=== PATIENT | female | born 1975 | race Caucasian/White ===

== ENCOUNTER 2018-10-17 02:04 | Emergency (ER) | payer OTHER ==
[2018-10-17] MEDS ORDERED: ASPIRIN 81 MG CHEWABLE TABLET PO ONE (02:05)
[2018-10-17] MEDS ORDERED: ADENOSINE 12 MG/4 ML VIAL IVP ONE (02:12)
--- NOTE | 2018-10-17 02:17 | Emergency Department Record ---
History of Present Illness - General Chief Complaint: Rapid heartbeat Stated Complaint: CHEST PAIN Time Seen by Provider: 10/17/18 02:04 Source: Patient Mode of Arrival: Ambulatory Limitations: No limitations - History of Present Illness Initial Comments: 42 yo female presents to ED for evaluation of a racing anglin beat that began approximately 10 minutes ago, woke the patient from sleep. Patient denies previous history of symptoms, denies previous cardiac problems. Patient denies health problems at her baseline. Patient does report recent URI, reports using OTC medication with pseudoephedrine. Patient denies excess caffeine intake. MD Complaint: "Heart racing", Palpitations Onset/Timin -: Minutes(s) Context: Awoke with symptoms Associated Symptoms: Anxiety, Chest pain - Related Data Previous Rx's Medication Instructions Recorded Azithromycin [Zithromax] 250 mg PO DAILY #4 tab 10/17/18 Allergies Allergy/AdvReac Type Severity Reaction Status Date / Time bacitracin Allergy RASH Verified 10/08/15 23:47 [From Neosporin ([id number])] bacitracin zinc Allergy RASH Verified 10/08/15 23:47 [From Neosporin ([id number])] moxifloxacin HCl Allergy HIVES Verified 10/08/15 23:47 [From Avelox] neomycin sulfate Allergy RASH Verified 10/08/15 23:47 [From Neosporin ([id number])] polymyxin B Allergy RASH Verified 10/08/15 23:47 [From Neosporin ([id number])] Travel Screening - Travel/Exposure Within Last 30 Days Have you traveled within the last 30 days?: No Review of Systems Constitutional: Denies: Chills, Fever, Malaise, Night sweats Eyes: Denies: Eye discharge, Eye pain ENT: Denies: Congestion, Ear pain, Epistaxis Respiratory: Denies: Cough, Dyspnea Cardiovascular: Reports: Chest pain, Palpitations. Denies: Dyspnea on exertion Endocrine: Denies: Fatigue, Heat or cold intolerance Gastrointestinal: Denies: Abdominal pain, Nausea, Vomiting Genitourinary: Denies: Incontinence, Retention Musculoskeletal: Denies: Arthralgia, Back pain Skin: Denies: Bruising, Change in color Neurological: Denies: Abnormal gait, Confusion, Headache, Seizure Psychiatric: Denies: Anxiety Hematological/Lymphatic: Denies: Anemia, Blood Clots Past Medical History - SOCIAL HISTORY Smoking Status: Never smoker Alcohol Use: None Drug Use: None - RESPIRATORY Hx Respiratory Disorders: No - CARDIOVASCULAR Hx Cardio Disorders: No - NEURO Hx Neuro Disorders: No - GI Hx GI Disorders: No - Hx Genitourinary Disorders: No - ENDOCRINE Hx Endocrine Disorders: No - MUSCULOSKELETAL Hx Musculoskeletal Disorders: No - PSYCH Hx Psych Problems: No - HEMATOLOGY/ONCOLOGY Hx Hematology/Oncology Disorders: No Family Medical History Any Significant Family History?: Yes Hx Diabetes: Father, Mother Hx Heart Disease: Grandparents Physical Exam - General General Appearance: Alert, Oriented x3, Cooperative, Moderate distress Limitations: No limitations - Head Head exam: Atraumatic, Normocephalic, Normal inspection Head exam detail: negative: Abrasion, Contusion, Danielson's sign, General tenderness, Hematoma, Laceration - Eye Eye exam: Normal appearance. negative: Conjunctival injection, Periorbital swelling, Periorbital tenderness, Scleral icterus - ENT Ear exam: negative: Auricular hematoma, Auricular trauma Nasal Exam: negative: Active bleeding, Discharge, Dried blood, Foreign body Mouth exam: negative: Drooling, Laceration, Muffled voice, Tongue elevation - Neck Neck exam: Normal inspection. negative: Meningismus, Tenderness - Respiratory Respiratory exam: Normal lung sounds bilaterally. negative: Rales, Respiratory distress, Rhonchi, Stridor - Cardiovascular Cardiovascular Exam: Normal rhythm, Normal heart sounds, Tachycardia - GI/Abdominal GI/Abdominal exam: Soft. negative: Rebound, Rigid, Tenderness - Rectal Rectal exam: Deferred - exam: Deferred - Extremities Extremities exam: Normal inspection. negative: Pedal edema, Tenderness - Back Back exam: Denies: CVA tenderness (R), CVA tenderness (L) - Neurological Neurological exam: Alert, Normal gait, Oriented X3 - Psychiatric Psychiatric exam: Normal affect, Normal mood - Skin Skin exam: Normal color. negative: Abrasion Type of lesion: negative: abrasion Course - Reevaluation(s) Reevaluation #1: 10/17/18 02:21 EKG: SVT 201 Normal axis, Regular intervals Rate-related changes present Patient was given Adenosine 12 mg IVP with resolution of SVT to Sinus tachycardia, IVFs ordered to infuse as well pending laboratory study results. Reevaluation #2: 03/08/19 02:44 Laboratory studies were reviewed and are grossly unremarkable for an acute process except: WBC 20.1 Influenza negative CXR: Possible streaky infiltrate right base Reevaluation #3: 10/17/18 04:19 EKG: Sinus tachycardia 111 Normal axis, normal intervals No acute ST-T wave changes Patient was reassessed, reports that she is feeling much better. Will prescribe Zithromax for URI symptoms. Patient appears stable for discharge at this time. Medical Decision Making - Lab Data Result diagrams: 10/17/18 02:21 10/17/18 02:21 Critical Care Time Critical Care Time: Yes Total Critical Care Time: 35 Critical Care Time: Diagnosis and treatment (cardioversion) from SVT to NSR, frequent reassessments , treatment for probable pneumonia, dehydration. Disposition Disposition: Discharge Clinical Impression: SVT (supraventricular tachycardia) CAP (community acquired pneumonia) Qualifiers: Laterality: right Lung location: lower lobe of lung Qualified Code(s): J18.1 - Lobar pneumonia, unspecified organism Disposition: Home, Self-Care Condition: (2) Stable Instructions: Supraventricular Tachycardia (ED) Additional Instructions: Return to ED if your symptoms worsen or if you have any concerns. Zithromax as directed. Follow-up with your family doctor in 3-5 days as directed. Prescriptions: Azithromycin [Zithromax] 250 mg PO DAILY #4 tab Forms: Patient Portal Access Time of Disposition: 04:20 Quality - Quality Measures Quality Measures: N/A - Blood Pressure Screening Does Patient Have Any of the Following: No Blood Pressure Classification: Pre-Hypertensive BP Reading Systolic Measurement: 158 Diastolic Measurement: 81 Screening for High Blood Pressure: < Pre-Hypertensive BP, F/U Documented > [ [id number]] Pre-Hypertensive Follow-up Interventions: Referral to alternative/primary care provider.
[2018-10-17 02:24] LABS: HEMATOCRIT 42.9 % (35.0-47.0); HEMOGLOBIN 14.7 gm/dl (11.6-16.0); MEAN CELL VOLUME 92.7 fl (81-97); MEAN CORPUSCULAR HEMOGLOBIN 31.7 pg (27-33); MEAN CORPUSCULAR HGB CONC 34.3 g/dl (32-36); MEAN PLATELET VOLUME 10.1 fl (7.4-10.4); PLATELET COUNT 374 K/uL (130-400); RED BLOOD COUNT 4.63 M/uL (3.80-5.40); RED CELL DISTRIBUTION WIDTH 12.5 % (11.5-14.5)
[2018-10-17 02:29] LABS: WHITE BLOOD COUNT W/O DIFF 20.1 K/uL (4.2-12.2)
[2018-10-17] MEDS ORDERED: 0.9 % SODIUM CHLORIDE 1000ML 1,000 ML IV SCH ×2 (02:30→03:15)
[2018-10-17 02:34] LABS: BLOOD UREA NITROGEN 11 mg/dL (6-20); CREATININE 0.7 mg/dL (0.5-0.9); EST GLOMERULAR FILTRATION RATE > 60 mL/min
[2018-10-17 02:35] LABS: TOTAL PROTEIN 8.1 g/dL (6.6-8.7)
[2018-10-17 02:37] LABS: GLUCOSE,RANDOM 191 mg/dL (74-109)
[2018-10-17 02:40] LABS: ALKALINE PHOSPHATASE 86 U/L (35-104); ALT/SGPT 53 U/L (<33); AST/SGOT 41 U/L (10.0-35.0)
[2018-10-17 02:50] LABS: THYROID STIMULATING HORMONE 4.73 uIU/mL (0.270-4.20)
[2018-10-17 03:00] LABS: INFLUENZA A NEGATIVE (NEGATIVE); INFLUENZA B NEGATIVE (NEGATIVE)
[2018-10-17] MEDS ORDERED: AZITHROMYCIN 500 MG TABLET PO ONE (03:05)
--- NOTE | 2018-10-20 09:53 | RADIOLOGY REPORT ---
EXAM: CHEST, TWO VIEWS HISTORY: COUGH, CONGESTION. TECHNIQUE: Two views of the chest were obtained. Comparison: Chest radiograph 12/17/08. FINDINGS: The cardiac silhouette is within normal size limits. The pulmonary vasculature is nondilated. Minimal patchy opacity in the right lung base which is new from prior study. The lungs are otherwise clear. No pleural effusion or pneumothorax. IMPRESSION: MINIMAL PATCHY RIGHT BASILAR OPACITY, WHICH MAY REPRESENT ATELECTASIS OR ACUTE AIR SPACE DISEASE. JOB NUMBER: [id number] [facility]
== END 2018-10-17 04:27 | disposition home or self-care (01) ==
LOC: ER 02:04
DX: I47.1 Supraventricular tachycardia (principal); J18.1 Lobar pneumonia, unspecified organism; E86.0 Dehydration
CPT/HCPCS: 99291 ×2; 96374; 96361; 80053; 84443; 87400; 84484; 85027; 71046; 93005; 93010; J0153; J7030